=== PATIENT | female | born 1980 | race Caucasian/White ===

== ENCOUNTER 2023-08-27 09:03 | Day surgery (SDC) | payer OTHER ==
[~2023-08-27] VITALS: Ht 180.3 cm; Wt 80.0 kg
[2023-08-27] MEDS ORDERED: SOTO80 PO (09:15)
[2023-08-27] MEDS ORDERED: WARF6 PO (09:17)
[2023-08-27 09:46] VITALS: BP 175/103
[2023-08-27 10:00] VITALS: BP 162/107
[2023-08-27 10:05] VITALS: BP 155/105
[2023-08-27 10:10] VITALS: BP 134/100
[2023-08-27 10:15] VITALS: BP 137/97
--- NOTE | 2023-08-27 10:40 | NUR ---
PT TOLERATES CARDIOVERSION WELL. VSS. NADN. PT SINUS RHTYHM ON MONITOR. PT VERBALIZES UNDERSTANDING WRITTEN INSTRUCTIONS. DENIES QUESTIONS. PT IV DC'D. CATH INTACT. PRESSURE DSG APPLIED. PT WILL BE DC'D TO HOME VIA WC
[2023-08-27 11:00] VITALS: BP 130/96
== END 2023-08-27 23:39 | disposition home or self-care (01) ==
LOC: MHTC 09:03
DX: I48.91 Unspecified atrial fibrillation (principal); I48.92 Unspecified atrial flutter; I44.0 Atrioventricular block, first degree; I42.8 Other cardiomyopathies; E78.5 Hyperlipidemia, unspecified; F41.8 Other specified anxiety disorders; Z88.0 Allergy status to penicillin; Z88.8 Allergy status to other drugs, medicaments and biological substances; Z79.01 Long term (current) use of anticoagulants; Z79.899 Other long term (current) drug therapy
CPT/HCPCS: 92960; 93005; 93010; 99152; J1200; J2250; J7030

== ENCOUNTER → 2023-10-14 | Outpatient (CLI) | payer OTHER ==
[~2023-10-14] MED LIST: SOTO80 PO; WARF6 PO
[2023-10-17 06:44] LABS: APTIMA MEDIA TYPE Unisex Swab; C. TRACHOMATIS BY TMA Negative (Negative); N. GONORRHOEAE BY TMA Negative (Negative); SPECIMEN SOURCE Throat
== END ==
LOC: LAB SHORT 08:04 → LAB 08:04
PROVIDERS: Physician Assistant
DX: J02.9 Acute pharyngitis, unspecified (principal)
CPT/HCPCS: 87491; 87591

== ENCOUNTER 2023-11-18 10:19 | Observation (INO) | payer OTHER ==
[~2023-11-18] VITALS: Ht 177.8 cm; Wt 81.6 kg
[2023-11-18 11:15] LABS: BASOPHILS ABSOLUTE AUTO 0.04 K/mm3 (0.00-0.23); BASOPHILS PERCENT AUTO 1 % (0-2); EOSINOPHILS ABSOLUTE AUTO 0.11 K/mm3 (0.00-0.68); EOSINOPHILS PERCENT AUTO 2 % (0-6); Hemoglobin 13.2 g/dL (11.5-16.0); IMMATURE GRAN PERCENT AUTO 0 % (0-1); LYMPHOCYTES ABSOLUTE AUTO 2.53 K/mm3 (0.84-5.20); LYMPHOCYTES PERCENT AUTO 39 % (21-46); MONOCYTES ABSOLUTE AUTO 0.48 K/mm3 (0.16-1.47); MONOCYTES PERCENT AUTO 7 % (4-13); Mean Corpuscular HGB 30.8 pg (26.0-34.0); Mean Corpuscular HGB Conc 33.8 g/dL (31.5-36.5); Mean Corpuscular Volume 91 fL (80-100); NEUTROPHILS ABSOLUTE AUTO 3.37 K/mm3 (1.96-9.15); NEUTROPHILS PERCENT AUTO 52 % (41-73); Platelet Count 278 K/mm3 (150-400); RDW Coefficient Variation 11.6 % (11.7-14.2); RDW Standard Deviation 38.6 fL (35.1-46.3); Red Blood Cell Count 4.28 M/mm3 (3.80-5.20); White Blood Cell Count 6.53 K/mm3 (4.00-11.30)
[2023-11-18 11:31] LABS: International Normalized Ratio 2.12; Prothrombin Time Results 21.3 Sec (9.7-11.5)
[2023-11-18 11:37] LABS: Albumin, Blood 3.6 g/dL (3.4-5.0); Albumin/Globulin Ratio 0.9 (0.8-1.8); Bilirubin, Total 0.3 mg/dL (0.1-1.0); Bun/Creatinine Ratio 10.3 (12.0-20.0); Calcium, Blood 9.3 mg/dL (8.5-10.1); Creatinine, Blood 0.78 mg/dL (0.40-1.00); Potassium, Blood 3.5 mmol/L (3.5-5.5); Total Protein, Blood 7.6 g/dL (6.4-8.2)
[2023-11-18 15:15] VITALS: BP 151/100
[2023-11-18] MEDS ORDERED: Betapace120 MG PO (15:16)
[2023-11-18] MEDS ORDERED: WARF6 PO ×2 (15:16→15:17)
--- NOTE | 2023-11-18 16:44 | NUR ---
LATE ENTRY 1500: RECEIVED REPORT FROM LUIS MANUEL GUERRERO 1510: RECEIVED PT FROM ER VIA [facility], PT PLACED SELF IN BED, MADE COMFORTABLE, ORIENTED TO ROOM & UNIT ROUTINE. ADMIT COMPLETED. IS A&O X 4, VSS. PLEASANT & COOPERATIVE WITH ALL CARE. IS INDEPENDENT. DENIES CP & DYSPNEA.
--- NOTE | 2023-11-18 18:16 | NUR ---
SHIFT SUMMARY A&O X 4, VSS. IS PLEASANT & COOPERATIVE WITH ALL CARE. IS INDEPENDENT IN THE ROOM. TROPS HAVE CONTINUED TO TREND DOWN FROM 212, 209 TO 192. PT IS HOPING TO BE DC'D TOMORROW. TELE SHOWS A.FIB/A. FLUTTER WITH PVC'S. HR 50-60-70'S. CALL LIGHT WITHIN REACH & BED IN LOW POSITION. IS ABLE TO MAKE NEEDS KNOWN. DENIES CP & DYSPNEA.
[2023-11-18 20:15] VITALS: BP 120/75
--- NOTE | 2023-11-18 22:47 | NUR ---
3114 Hospitalist notified of patient anxiety, she is afraid of an ID. She is having some chest pressure with burning. Refusing meds for anxiety, new meds cause extreme anxiety. Dr. Nunez also notified of HR in the 40's. Pt Troponines have been 212,209,192,215. Patient wants another troponin done, feels it is not going to help anything at this time. Will continue to monitor.
[2023-11-19 04:10] VITALS: BP 130/71
--- NOTE | 2023-11-19 05:17 | NUR ---
END OF SHIFT SUMMARY PT A&O x4, VSS, AFEBRILE, PT ON RA. PT PLEASANT AND COOPERATIVE WITH CARE PROVIDED. OVERNIGHT, PT SLEPT ON AND OFF. PT BECAME ANXIOUS AFTER LEARNING ABOUT RECENT TROPONIN LEVELS. PT EDUCATION PROVIDED REGARDING REASONS FOR FLUCTUATION IN TROPONIN LEVELS, TO TRY TO EASE THIS PT'S MIND. PT C/O CHEST PAIN THAT FELT MORE LIKE INDIGESTION. PRN PO MAALOX GIVEN, WHICH WAS EFFECTIVE. FLUIDS ENCOURAGED THROUGHOUT THE SHIFT. PT ON TELEMETRY, PT AFIB AT 60 BPM. TELEMETRY CALLED TO NOTIFY THIS RN THAT PT's HR DROPPED DOWN TO 38-39 FOR A FEW BEATS. PT'S AVERAGE HR WAS 52. FREQUENT SAFETY CHECKS COMPLETED OVERNIGHT. CALL LIGHT WITHIN REACH, WC. 2300: PT MUCH MORE CALM AFTER DISCUSSION WITH STITCHER AROUND AND THIS AUTHOR.
[2023-11-19 06:24] LABS: International Normalized Ratio 2.13; Prothrombin Time Results 21.4 Sec (9.7-11.5)
[2023-11-19 07:43] VITALS: BP 127/88
--- NOTE | 2023-11-19 09:00 | NUR ---
Pt laying in bed she seems a bit tense this am, a/ox4 pleasant and cooperative with care, follows commands well, denies pain this am, lungs are clear t/o, resp even and unlabored, on r/a, resp even and unlabored, no cough noted, hrr, slow, tele in place running afib per monitor, see strip, no edema noted, ppp+2, cap refill <3 sec, vs stable, afebrile, piv site is clear and patent, btx4, abd flat soft nontender, voids without diff, skin c/w/d, maew, cony, call light in reach.
--- NOTE | 2023-11-19 12:33 | NUR ---
[facility] has called several times with tele showing vtach 8 to 10 beat runs, notified Dr. Braden. she is having a one day protocol stress test. was very tearful, spoke with her and offered ativan, she declined, also offered to have chapsameer stop by, she said her own disk recoater will be coming in. no further needs at this time. call light in reach.
[2023-11-19 15:02] VITALS: BP 144/99
--- NOTE | 2023-11-19 16:56 | NUR ---
CAME BY, STATES PT PASSED STRESS TEST/ WILL D/CHG. HE NOTIFIED PT.
[2023-11-19] MEDS ORDERED: Calcium Carbon500 MG PO (17:00)
[2023-11-19] MEDS ORDERED: Atarax10 MG PO (17:00)
[2023-11-19] MEDS ORDERED: PANT20 PO (17:00)
--- NOTE | 2023-11-19 17:30 | NUR ---
PT DISCHARGE REVIEWED WITH PT. SHE VERBALIZED UNDERSTANDING MEDS AND INST. TELE AND IV PULLED BY AIDE. WALKED TO DOOR BY AIDE. [id number]
== END 2023-11-19 17:30 | disposition home or self-care (01) ==
LOC: ER 10:19 → MEDS 10:20
PROVIDERS: Physician Assistant; ADMIT Internal Medicine
DX: R07.89 Other chest pain (principal); R79.89 Other specified abnormal findings of blood chemistry; I48.91 Unspecified atrial fibrillation; I50.20 Unspecified systolic (congestive) heart failure; Z95.0 Presence of cardiac pacemaker; Z88.0 Allergy status to penicillin; Z88.1 Allergy status to other antibiotic agents; Z79.01 Long term (current) use of anticoagulants; Z79.899 Other long term (current) drug therapy
CPT/HCPCS: 36415; 71046; 78452; 80053; 83880; 84484; 85025; 85610; 93005; 93010; 93017; 99285-25; A9270; A9500; G0378; J0280; J2785